=== PATIENT | female | born 1970 | race Caucasian/White ===

== ENCOUNTER 2023-09-18 17:10 | Emergency (ER) | payer BC ==
[~2023-09-18] VITALS: Ht 162.6 cm; Wt 90.7 kg
[2023-09-18 17:15] VITALS: BP 128/70; PULSE 84; RESP 20; TEMP 98; O2SAT 100
[2023-09-18 18:09] LABS: APPEARANCE,URINE CLEAR (CLEAR); BILIRUBIN,URINE NEGATIVE (NEGATIVE); BLOOD, URINE TRACE-I (NEGATIVE); COLOR,URINE YELLOW (YELLOW); LEUKOCYTE ESTERASE ,URINE NEGATIVE (NEGATIVE); NITRITE, URINE NEGATIVE (NEGATIVE); PROTEIN,URINE TRACE (NEGATIVE); UGLUCOSE NEGATIVE (NEGATIVE); UROBILINOGEN,URINE 0.2 EU/dL (0.2 - 1)
[2023-09-18 18:11] LABS: BASOPHILS % (AUTO) 0.3 % (0.0-2.0); EOSINOPHILS % (AUTO) 0.1 % (0.0-4.0); HEMOGLOBIN 13.7 g/dL (12.0-16.0); LYMPHOCYTES # (AUTO) 1.2 K/uL (2.5-16.5); LYMPHOCYTES % (AUTO) 23.5 % (20.5-51.1); MEAN CORPUSCULAR HEMOGLOBIN 31 pg (27-31); MEAN CORPUSCULAR HGB CONC 34 g/dL (33-37); MEAN CORPUSCULAR VOLUME 91.1 fL (80-94); MONOCYTES # (AUTO) 0.3 K/uL (0.8-1.0); MONOCYTES % (AUTO) 5.9 % (1.7-9.3); NEUTROPHILS # (AUTO) 3.6 K/uL (1.8-7.7); NEUTROPHILS % (AUTO) 70.2 % (42.2-75.2); PLATELET COUNT (AUTO) 177 K/uL (140-450); RED BLOOD CELL COUNT(AUTO) 4.39 MIL/uL (4.20-5.40); RED CELL DISTRIBUTION WIDTH 13.5 % (11.6-13.7); WHITE BLOOD COUNT (AUTO) 5.1 K/uL (4.8-10.8)
[2023-09-18 18:23] LABS: CALCIUM 8.9 mg/dL (8.5-10.1); CARBON DIOXIDE 27.2 mmol/L (21-32); CREATININE 0.8 mg/dL (0.6-1.3); POTASSIUM 3.2 mmol/L (3.5-5.1)
[2023-09-18 18:26] LABS: FLU A ANTIGEN POSITIVE (NEGATIVE); FLU B ANTIGEN NEGATIVE (NEGATIVE)
[2023-09-18 18:30] LABS: ALANINE AMINOTRANSFERASE 81 U/L (12-78); ALBUMIN 3.7 g/dL (3.4-5.0); ALKALINE PHOSPHATASE 74 U/L (50-136); ASPARTATE AMINOTRANSFERASE 54 U/L (15-37); BILIRUBIN,DIRECT 0.1 mg/dL (0.0-0.3); LIPASE 28 U/L (16-77); TOTAL BILIRUBIN 0.4 mg/dL (0.0-1.0); TOTAL PROTEIN, SERUM 7.3 g/dL (6.4-8.2)
[2023-09-18 18:32] LABS: LACTIC ACID 0.8 mmol/L (0.4-2.0)
[2023-09-18] MEDS ORDERED: KETOROLAC 30 MG/ML VIAL IM ONE (18:40)
[2023-09-18] MEDS ORDERED: ONDA-188 PO (18:44)
[2023-09-18] MEDS: ACETAMINOPHEN EXTRA STRENGTH 500 MG TAB PO ONE (19:06)
[2023-09-18] MEDS: ONDANSETRON 4 MG ODT PO ONE (19:07)
[2023-09-18] MEDS: KETOROLAC 30 MG/ML VIAL IVP ONE (19:07)
[2023-09-18] MEDS: NACL 0.9% 1,000 ML IV SCH (19:07)
[2023-09-18 19:33] VITALS: O2SAT 95
[2023-09-18 19:38] VITALS: BP 115/72; PULSE 91; RESP 18; TEMP 99; O2SAT 95
== END 2023-09-18 20:36 | disposition home or self-care (01) ==
LOC: MED 17:10
DX: J11.1 Influenza due to unidentified influenza virus with other respiratory manifestations (principal); R19.7 Diarrhea, unspecified; R11.0 Nausea; R10.11 Right upper quadrant pain; R10.31 Right lower quadrant pain; Z20.822 Contact with and (suspected) exposure to COVID-19; Z79.899 Other long term (current) drug therapy
CPT/HCPCS: 36415; 71045; 74176; 80048; 80076; 81003; 81025; 83605; 83690; 84484; 85025; 87426; 87804; 93005; 96361; 96374; 99285; J1885; J7030; Q0162